=== PATIENT | male | born 1985 | race Caucasian/White ===

== ENCOUNTER 2018-06-25 09:34 | Emergency (ER) | payer BC ==
[~2018-06-25] VITALS: Ht 175.3 cm; Wt 134.1 kg
[2018-06-25 09:48] VITALS: Ht 175.3 cm; Wt 134.1 kg
[2018-06-25] MEDS ORDERED: TYLENOL W/CODEI1 TAB PO (09:50)
[2018-06-25] MEDS ORDERED: ANASTROZOLE PO (09:52)
[2018-06-25] MEDS ORDERED: ZYRTEC10 MG PO (09:53)
[2018-06-25] MEDS ORDERED: CLOMIPRAMINE HC25 MG PO (09:53)
[2018-06-25] MEDS ORDERED: BUPROPION XL150 MG PO (09:53)
[2018-06-25] MEDS ORDERED: FISH OIL 1,0001 CA1 PO (09:54)
[2018-06-25] MEDS ORDERED: NIZORAL 2 % SH120 ML TOPICAL (09:54)
[2018-06-25] MEDS ORDERED: VALIUM5 MG PO (09:54)
[2018-06-25] MEDS ORDERED: REMERON15 MG PO (09:55)
[2018-06-25] MEDS ORDERED: MOBIC7.5 MG PO (09:55)
[2018-06-25] MEDS ORDERED: PRINIVIL10 MG PO (09:55)
[2018-06-25] MEDS ORDERED: LYRICA150 MG PO (09:56)
[2018-06-25] MEDS ORDERED: OMEPRAZOLE20 M1 PO (09:56)
[2018-06-25] MEDS ORDERED: TRINTELLIX20 MG PO (09:56)
[2018-06-25] MEDS ORDERED: PROPRANOLOL HCL20 MG PO (09:56)
[2018-06-25] MEDS ORDERED: KEFLEX500 MG PO (09:57)
[2018-06-25 10:29] LABS: BASOPHILS 0.7 % (0-2); HEMATOCRIT 42.4 % (42.0-54.0); HEMOGLOBIN 14.6 g/dL (13.5-17.5); IMMATURE GRANULOCYTES 0.1 % (0-5); LYMPHOCYTES 17.2 % (15-50); MCH 30.2 pg (26.0-34.0); MCHC 34.4 g/dL (31.0-37.0); MCV 87.6 fL (80.0-100.0); MEAN PLATELET VOLUME 9.7 fL (7.4-10.4); MONOCYTES 9.5 % (2-11); NEUTROPHILS 70.5 % (40-80); PLATELET COUNT 179 10x3/uL (130-400); RBC 4.84 10x6/uL (4.20-6.10); RDW 12.5 % (11.5-14.5); WBC 10.1 10x3/uL (4.8-10.8)
[2018-06-25 10:52] LABS: ALBUMIN 3.4 g/dL (3.4-5.0); ALKALINE PHOSPHATASE 72 U/L (46-116); ALT (SGPT) 60 U/L (10-68); BILIRUBIN - TOTAL 0.38 mg/dL (0.2-1.3); CALC OSMOLALITY 283 mosm/kg (275-300); CARBON DIOXIDE 25.6 mmol/L (21.0-32.0); CHLORIDE - SERUM 107 mmol/L (98-107); CREATININE - SERUM 0.9 mg/dL (0.6-1.3); GLUCOSE 106 mg/dL (74-106); POTASSIUM - SERUM 4.2 mmol/L (3.5-5.1); SODIUM 143 mmol/L (136-145); UREA NITROGEN 10 mg/dL (7-18); eGFR NON AFRICAN AMERICAN > 90 mL/min (90-120)
[2018-06-25] MEDS ORDERED: HYDROCODON-ACE1 EA10 PO (11:58)
[2018-06-25] MEDS ORDERED: CLEOCIN HCL300 MG PO (11:58)
[2018-06-25 12:35] VITALS: BP 118/76
== END 2018-06-25 12:38 | disposition home or self-care (01) ==
LOC: D.ER 09:34
PROVIDERS: Emergency Medicine
DX: T81.40XA Infection following a procedure, unspecified, initial encounter (principal)